=== PATIENT | female | born 1975 | race African-American/Black ===

== ENCOUNTER 2020-12-26 09:08 | Outpatient (CLI) | payer OTHER | END 2020-12-26 09:09 | disposition home or self-care (01) | LOC: TBSIIMAG 09:08 | PROVIDERS: ATTEND Neurological Surgery | DX: M47.12 Other spondylosis with myelopathy, cervical region (principal); M48.062 Spinal stenosis, lumbar region with neurogenic claudication; M51.36 Other intervertebral disc degeneration, lumbar region; M51.37 Other intervertebral disc degeneration, lumbosacral region | CPT/HCPCS: 72141; 72148 ==